=== PATIENT | female | born 1995 | race Asian ===

== ENCOUNTER 2019-02-02 23:54 | Emergency (ER) | payer SELFPAY ==
[~2019-02-02] VITALS: Ht 172.7 cm; Wt 54.0 kg
[2019-02-03 00:02] VITALS: BP 131/81; Ht 172.7 cm; Wt 54.0 kg
== END 2019-02-03 00:46 | disposition left against medical advice (07) ==
LOC: ED 23:54
DX: R10.9 Unspecified abdominal pain (principal); Z53.21 Procedure and treatment not carried out due to patient leaving prior to being seen by health care provider